=== PATIENT | female | born 1955 | race African-American/Black ===

== ENCOUNTER 2018-04-19 05:09 | Day surgery (SDC) | payer OTHER ==
[2018-04-17 17:52] VITALS: BMI 35.2
[2018-04-19] MEDS ORDERED: LIDOCAINE HCL/PF 2% SDV 5ML VIAL ONE (07:50)
[2018-04-19] MEDS ORDERED: MIDAZOLAM HCL 2 MG/2 ML SINGLE DOSE VIAL ONE (07:51)
[2018-04-19] MEDS ORDERED: PROPOFOL 20 ML ONE ×2 (07:51)
[2018-04-19] MEDS ORDERED: IBUPROFEN 400 MG TABLET (FP) PO PRN (08:05)
[2018-04-19] MEDS ORDERED: ACETAMINOPHEN 325 MG TABLET (FP) PO PRN (08:05)
--- NOTE | 2018-04-19 08:05 | HP ---
History & Physical Update - History History: No Change - Physical Physical: No Change - Assessment Assessment: No Change - Plan Plan: No Change (No change in HP)
--- NOTE | 2018-04-19 08:08 | OP ---
Operative Note - Note: Operative Date: 04/19/18 Pre-Operative Diagnosis: Endometrial hyperplasia. Cervical polyp Operation: Vaginal myomectomy. HYsteroscopic myomectomy. Suction DC Findings: 6 cm myoma removed from protruding out of cervix papillary lesions seen in the endo ro endometrial ca Post-Operative Diagnosis: Same as Pre-op Surgeon: Skyla Simon Anesthesia: General Estimated Blood Loss (mls): 40 Operative Report Dictated: Yes
[2018-04-19] MEDS ORDERED: ONDANSETRON 4 MG/2 ML VIAL IVPUSH PRN (09:03)
[2018-04-19] MEDS ORDERED: oxyCODONE HCL 5 MG TABLET PO PRN (09:03)
--- NOTE | 2018-04-19 09:21 | OP ---
DATE OF OPERATION: 04/19/2018 SURGEON: Skyla Simon MD PREOPERATIVE DIAGNOSIS: Cervical polyp or fibroid and endometrial hyperplasia and submucosal myoma. PROCEDURE: Vaginal myomectomy and hysteroscopic myomectomy as well as suction dilatation and curettage. POSTOPERATIVE DIAGNOSIS: Aborting submucosal myoma as well as rule out endometrial cancer. ANESTHESIA: General. ANESTHESIOLOGIST: Dat Faria MD DESCRIPTION OF PROCEDURE: Patient was taken to the operating room, placed in dorsal lithotomy position, prepped and draped in the usual sterile fashion. A time- out was performed according to hospital regulations. A speculum was placed in the vagina. A protruding myoma was seen coming out of the cervix. Tenaculum was then used to grasp the myoma, and vaginal myomectomy was then performed. Hysteroscope was then inserted, and visualization revealed polyp papillary-like tissue seen as well as some submucosal myoma. Need to ro endometrial cancer path and sent to pathology. Hysteroscopic myomectomy was then performed, and suction dilatation and curettage was then removed. Specimen was submitted to rule out endometrial cancer. After suction dilatation and curettage had been performed, all instruments were then removed. Specimens were all submitted to Pathology. Patient had tolerated the procedure well. Estimated blood loss 40 mL. SKYLA SIMON M.D. FERN/[id number] MTDD
[2018-04-19 12:14] VITALS: BP 121/62; PULSE 62; TEMP 97.4
--- NOTE | 2018-04-24 16:04 | PATH ---
Surgical Pathology Report Patient Name: REMI DIAL [facility]. Rec. #: [id number] /Age/Gender: 1955 (Age: 62) / F Account: [id number] Location: [facility] SUR[facility]ICAL Taken: 04/19/2018 Received: 04/19/2018 Reported: 04/24/2018 Physicians: Skyla Simon M.D. Specimen(s) Received A: UTERINE FIBROIDS B: POLYP C: ENDOMETRIAL CURETTINGS Clinical History The Anterior fibroids Final Diagnosis A. FIBROID, R/O CANCER, EXCISION: ENDOMETRIOID CARCINOMA, FIGO 3, INVOLVING LEIOMYOMA. SEE COMMENT. B. POLYP, R/O CANCER, EXCISION: SEROUS CARCINOMA, HIGH GRADE. SEE COMMENT. SEPARATE FRAGMENTS OF ENDOMETRIAL POLYP INVOLVED BY ENDOMETRIOID CARCINOMA. C. 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 SEPARATE FRAGMENTS OF ENDOMETRIAL POLYP INVOLVED BY ENDOMETRIOID CARCINOMA. 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 Immunohistochemical stained slides in specimen A (block A4) demonstrate tumor cells to be positive for p16, p53, and ER, while negative for WT-1. The morphology and immunophenotype support a diagnosis of endometrioid carcinoma. Immunohistochemical stained slides in specimen B (block B1) demonstrate tumor cells to be positive for p16, WT-1, and ER (patchy), while patchy weak immunoreactivity for p53. The morphology and immunophenotype support a diagnosis of high grade serous carcinoma. Ki-67 shows highly proliferative index. Immunohistochemistry stains performed at [place], [place] ([id number]) interpreted at [facility]. Positive and negative controls (internal if applicable) show appropriate results. Intradepartmental case reviewed with concordance on diagnosis. This case was discussed with Dr. Simon, April 24, 2018. Electronically Signed Suman Ashley M.D. Gross Description A. Received in formalin labeled "fibroid rule out cancer," is a 14 g, 6.7 x 2.5 x 2.0 cm meadows-yellow portion of soft tissue. Sectioning reveals homogeneous meadows tissue. [employer] sections are submitted in 5 cassettes. B. Received in formalin labeled "polyp," is a 3.0 x 2.5 x 0.4 cm aggregate of meadows, firm to rubbery tissue fragments admixed with blood clot. The formalin is filtered and the specimen is entirely submitted in 3 cassettes. C. Received in formalin labeled "endometrial curettings," is a 4.3 x 3.7 x 0.4 cm aggregate of meadows-brown soft tissue fragments. The formalin is filtered and the specimen is entirely submitted in 2 cassettes. 04/19/2018 [facility]04/19/2018
== END 2018-04-19 12:14 | disposition home or self-care (01) ==
LOC: JASU-SURG 05:09
PROVIDERS: ATTEND Obstetrics & Gynecology
PROC: 0UJD8ZZ Inspection of Uterus and Cervix, Via Natural or Artificial Opening Endoscopic (ICD-10-PCS; 2018-04-19)
PROC: 0UB98ZZ Excision of Uterus, Via Natural or Artificial Opening Endoscopic (ICD-10-PCS; principal; 2018-04-19 08:00)
PROC: 0UDB7ZX Extraction of Endometrium, Via Natural or Artificial Opening, Diagnostic (ICD-10-PCS; 2018-04-19 08:00)
DX: D25.0 Submucous leiomyoma of uterus (principal)
CPT/HCPCS: 86850; 86900; 86901; 88305-TC; 94760